=== PATIENT | female | born 1945 | race African-American/Black ===

== ENCOUNTER → 2017-04-07 | Outpatient (CLI) | payer OTHER, BC | LOC: SPEECH 09:14 → RAD 09:52 | DX: R13.12 Dysphagia, oropharyngeal phase (principal) ==

== ENCOUNTER → 2017-08-01 | Outpatient (CLI) | payer OTHER, BC | LOC: CAT 11:45 | DX: J98.4 Other disorders of lung (principal); R91.1 Solitary pulmonary nodule ==

== ENCOUNTER → 2017-11-22 | Outpatient (CLI) | payer OTHER, BC | LOC: CAT 09:48 | DX: R91.8 Other nonspecific abnormal finding of lung field (principal) ==

== ENCOUNTER → 2017-11-30 | Outpatient (CLI) | payer OTHER, BC | LOC: CAT 08:28 | DX: G31.89 Other specified degenerative diseases of nervous system (principal); M54.12 Radiculopathy, cervical region; H54.7 Unspecified visual loss; Z95.810 Presence of automatic (implantable) cardiac defibrillator ==

== ENCOUNTER → 2018-11-14 | Outpatient (CLI) | payer OTHER, BC | LOC: CAT 14:54 | DX: R91.1 Solitary pulmonary nodule (principal); J43.9 Emphysema, unspecified; Z88.8 Allergy status to other drugs, medicaments and biological substances ==

== ENCOUNTER → 2019-11-22 | Outpatient (CLI) | payer OTHER, BC | LOC: CAT 10:30 → EDSTATUS 16:50 | PROVIDERS: ATTEND Pediatrics | DX: J43.9 Emphysema, unspecified (principal); I51.7 Cardiomegaly; J84.10 Pulmonary fibrosis, unspecified; J98.4 Other disorders of lung; R91.1 Solitary pulmonary nodule ==

== ENCOUNTER → 2020-11-21 | Outpatient (CLI) | payer OTHER, BC | LOC: CAT 11:10 | PROVIDERS: ATTEND Pediatrics | DX: J43.9 Emphysema, unspecified (principal); R91.8 Other nonspecific abnormal finding of lung field; I70.0 Atherosclerosis of aorta; N20.0 Calculus of kidney ==

== ENCOUNTER 2021-01-29 08:59 | Emergency (ER) | payer OTHER, BC ==
[~2021-01-29] VITALS: Ht 160 cm; Wt 72.6 kg
[2021-01-29] MEDS ORDERED: LIPITOR 40 MG T40 M1 PO (10:22)
[2021-01-29] MEDS ORDERED: NORVASC5 MG PO (10:22)
[2021-01-29] MEDS ORDERED: CYCLOPENTOLA1 %/2 M1 OPHTHALMIC (10:23)
[2021-01-29] MEDS ORDERED: HYDROCHLOROTH12.5 M1 PO (10:23)
[2021-01-29] MEDS ORDERED: CARVEDILOL25 MG PO (10:23)
[2021-01-29] MEDS ORDERED: PAROXETINE HCL10 MG PO (10:24)
[2021-01-29] MEDS ORDERED: NITROSTAT0.4 M1 SL (10:24)
[2021-01-29] MEDS ORDERED: MICARDIS 80 MG80 MG PO (10:25)
[2021-01-29] MEDS ORDERED: NORCO5 PO (11:38)
[2021-01-29 11:51] VITALS: BP 169/100
== END 2021-01-29 11:52 | disposition home or self-care (01) ==
LOC: ER 08:59
DX: S52.502A Unspecified fracture of the lower end of left radius, initial encounter for closed fracture (principal); J44.9 Chronic obstructive pulmonary disease, unspecified; Z79.899 Other long term (current) drug therapy; Z88.6 Allergy status to analgesic agent; Z88.8 Allergy status to other drugs, medicaments and biological substances; W17.89XA Other fall from one level to another, initial encounter; Y93.89 Activity, other specified; Y92.89 Other specified places as the place of occurrence of the external cause; Y99.8 Other external cause status